=== PATIENT | male | born 1950 | race Caucasian/White ===

== ENCOUNTER 2018-01-03 08:51 | Emergency (ER) | payer OTHER ==
[~2018-01-03] VITALS: Ht 167.6 cm; Wt 85.6 kg
[2018-01-03 09:08] VITALS: BP 144/91; PULSE 73; RESP 16; TEMP 98.5; O2SAT 96
[2018-01-03] MEDS ORDERED: LOSA25TA PO (09:20)
[2018-01-03] MEDS ORDERED: ALLO100T PO (09:20)
--- NOTE | 2018-01-03 10:36 | RADRPT ---
EXAM DATE/TIME: 01/03/2018 10:12 [place] COMPARISON: No previous studies available for comparison. INDICATIONS : Left 4th digit foreign body; possible palm frond. MEDICAL HISTORY : None. SURGICAL HISTORY : None. ENCOUNTER: Initial ACUITY: 4 - 6 days PAIN SCORE: 5/10 LOCATION: Left 4th digit; hand. FINDINGS: Examination of the fourth digit of the left hand demonstrates no evidence of fracture or dislocation. No radiopaque foreign bodies are seen. There is prominent soft tissue edema overlying the dorsal as pect of the finger at the level of the proximal phalanx. CONCLUSION: Significant dorsal soft tissue edema. No evidence of radiopaque foreign body. Consider further evalua tion with ultrasound.. Bebe Terry MD on January 03, 2018 at 10:32 Board Certified Radiologist. This report was verified electronically.
[2018-01-03] MEDS ORDERED: CIPR-9 PO (10:51)
[2018-01-03] MEDS ORDERED: CLIN300C5 PO (10:51)
--- NOTE | 2018-01-03 10:52 | PD ---
HPI Chief Complaint: Injury Time Seen by Provider: 09:27 Travel History International Travel<30 days: Yes Contact w/Intl Traveler<30days: Yes Name of Country Traveled to: [place] Traveled to known affect area: No History of Present Illness HPI This is a 67-year-old male here with left fourth digit pain and swelling 3 days. He was unable to remove his wedding ring therefore came here for evaluation. He reports approximately 3 days ago he was working in the yard and he was poked in the finger by a palm frond. He does not believe there is a retained foreign body. His main concern was he was unable to remove the ring. He denies fever chills. He does report that the finger became slightly more swollen and red after the puncture. Symptom severity is moderate. Aggravated by palpation of the area and relieved with rest. He denies altered sensation or weakness of the finger. PFSH Past Medical History Hx Anticoagulant Therapy: Yes (ASA) Diabetes: No Diminished Hearing: No Gout: Yes Hypertension: Yes Tetanus Vaccination: Unknown Past Surgical History Other Surgery: Yes (MANDIBLE SX) Social History Alcohol Use: Yes (DAILY) Tobacco Use: No Substance Use: No Allergies-Medications (Allergen,Severity, Reaction): Coded Allergies: ibuprofen (Verified Allergy, Intermediate, 01/03/18) HIVES Reported Meds & Prescriptions Reported Meds & Active Scripts Active Cipro (Ciprofloxacin HCl) 500 Mg Tab 500 Mg PO BID 10 Days Clindamycin (Clindamycin HCl) 300 Mg Cap 300 Mg PO Q6H 10 Days Reported Losartan (Losartan Potassium) 25 Mg Tab 12.5 Mg PO DAILY Allopurinol 100 Mg Tab 100 Mg PO DAILY Review of Systems Except as stated in HPI: all other systems reviewed are Neg General / Constitutional: No: Fever Eyes: No: Visual changes HENT: No: Headaches Cardiovascular: No: Chest Pain or Discomfort Respiratory: No: Shortness of Breath Gastrointestinal: No: Abdominal Pain Genitourinary: No: Dysuria Physical Exam Narrative GENERAL: Alert and well-appearing 67-year-old male SKIN: Warm and dry. HEAD: Normocephalic. EYES: No scleral icterus. No injection or drainage. NECK: Supple GASTROINTESTINAL: nondistended. MUSCULOSKELETAL: No cyanosis. Left hand: Notable swelling to the fourth digit over the proximal phalanges. There is a cold wedding band in place. there is mild erythema noted. He is able to flex and extend all joints in the finger. Normal sensation distally. Brisk cap refill. BACK: Nontender without obvious deformity. No CVA tenderness. Data Data Last Documented VS Vital Signs Date Time Temp Pulse Resp B/P (MAP) Pulse Ox O2 Delivery O2 Flow Rate FiO2 01/03/18 09:08 98.5 73 16 144/91 (108) 96 Orders Orders Finger ([id number]) (01/03/18 ) Tetanus/Diphtheria Tox Adult (Tetanus/Di (01/03/18 11:00) MDM Medical Decision Making Medical Screen Exam Complete: Yes Emergency Medical Condition: Yes Differential Diagnosis Cellulitis, puncture wound, early abscess, retained foreign body Narrative Course 67-year-old male here with early abscess formation to the left fourth digit caused by puncture wound of palm needle 3 days ago. He was unable to remove his wedding ring therefore came in for removal today. Ring was removed. X-ray negative for radiopaque foreign body. By description the finger was poked with a thin needle and he does not believe there is retained foreign body. He will be treated with antibiotics clindamycin for MRSA coverage and Cipro for Pseudomonas coverage and instructed this needed close follow-up. He understands this area may need further evaluation by hand surgeon. Diagnosis Primary Impression: Cellulitis Qualified Codes: L03.90 - Cellulitis, unspecified Referrals: Crissy Rhodes MD, Srikanth MD Hand Surgeon Additional Instructions: Antibiotics as directed. Apply warm compresses several times per day. Keep a close eye on the area and seek reevaluation if the area begins to become increasingly more painful, red, swollen. Scripts Ciprofloxacin (Cipro) 500 Mg Tab 500 MG PO BID for Infection for 10 Days, #20 TAB 0 Refills Prov: Deanna Matt 01/03/18 Clindamycin (Clindamycin) 300 Mg Cap 300 MG PO Q6H for Infection for 10 Days, #40 CAP 0 Refills Prov: Deanna Matt 01/03/18 Disposition: 01 DISCHARGE HOME Condition: Stable Deanna Matt January 03, 2018 10:52
[2018-01-03] MEDS ORDERED: TETANUS/DIPHTHERIA TOXOID ADULT 0.5 ML VIAL IM ONE (11:00)
== END 2018-01-03 11:07 | disposition home or self-care (01) ==
LOC: PHEFT 08:51
DX: S61.235A Puncture wound without foreign body of left ring finger without damage to nail, initial encounter (principal); L03.012 Cellulitis of left finger; W26.8XXA Contact with other sharp object(s), not elsewhere classified, initial encounter; Y93.H9 Activity, other involving exterior property and land maintenance, building and construction; Y92.096 Garden or yard of other non-institutional residence as the place of occurrence of the external cause; I10 Essential (primary) hypertension; Z23 Encounter for immunization
CPT/HCPCS: 73140; 90471; 90714